=== PATIENT | female | born 1985 | race Caucasian/White ===

== ENCOUNTER 2016-11-24 19:23 | Emergency (ER) | payer OTHER ==
[~2016-11-24] VITALS: Ht 175.3 cm; Wt 88.5 kg
[~2016-11-24 19:23] MED LIST: BACTRIM DS 8001 TAB PO; BACTRIM DS TAB1 EACH PO; CLINDAMYCIN150 MG PO; FLUCONAZOLE150 MG PO; KEFLEX500 MG PO; METFORMIN HCL500 MG PO; METFORMIN500 MG PO; MOTRIN800 MG PO; PYRIDIUM100 M1 PO
--- NOTE | 2016-11-24 19:42 | ED GI/GU/ABDOMINAL COMPLAINT ---
History of Present Illness General Chief Complaint: Abdominal Pain/Flank Pain Stated Complaint: UPPER ABD PAIN, NAUSEA Source: patient Exam Limitations: no limitations Vital Signs & Intake/Output Vital Signs & Intake/Output ED Intake and Output 11/25 0000 11/24 1200 Intake Total Output Total Balance Patient 195 lb Weight Allergies Coded Allergies: NO KNOWN ALLERGIES (02/09/16) Reconcile Medications Metformin HCl 500 MG TABLET 1 TAB PO BID DM Norelgestromin/Ethin.estradiol (Xulane Patch) 150 MCG-35 MCG/24 HOUR PATCH.TDWK 1 PATCH TOP QFRI CONTROL (Reported) Ondansetron (Zofran Odt) 4 MG TAB.RAPDIS 1 TAB PO Q6 PRN NAUSEA Pantoprazole Sodium (Protonix) 40 MG TABLET.DR 1 TAB PO DAILY GERD Triage Note: PT TO TRIAGE WITH C/O ABDOMIINAL PAIN 7/10 INTERMITTENT x1,5 WEEK, +NAUSEA, -VOMITING, LBM TODAY WNL, -DIARRHEA, LOSS OF APPETITE. VSS. Triage Nurses Notes Reviewed? yes ? N Is pt currently ? No Onset: Abrupt Duration: week(s): (2) Timing: recent history Quality/Severity: mild, moderate Location: epigastric Activities at Onset: none Associated Symptoms: NAUSEA HPI: 30 year old female presents with 2 week history of epigastric abdominal pain and nausea. She reports nausea in the morning and at 4 pm. She thought she might be but saw her wire communications engineer last week and tested negative and was treated for a bacterial vaginal infection. She states that the nausea is severe when it comes. No vomiting or diarrhea. Minimal epigastric pain. Deneies any worsening vaginal discharge. Past History Travel History Traveled to [place] past 21 day No Medical History Any Pertinent Medical History? 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 No Review of Systems Review of Systems Constitutional: Denies: chills, fever. EENTM: Reports: no symptoms. Respiratory: Reports: no symptoms. Cardiovascular: Reports: no symptoms. GI: Reports: abdominal pain, nausea. Denies: vomiting. Genitourinary: Denies: discharge, dysuria. Musculoskeletal: Reports: no symptoms. Skin: Reports: no symptoms. Neurological/Psychological: Reports: no symptoms. Hematologic/Endocrine: Denies: bruising, bleeding, polyuria, polydipsia. Immunologic/Allergic: Denies: splenectomy. All Other Systems: Reviewed and Negative Physical Exam Physical Exam General Appearance: well developed/nourished, alert, awake Head: atraumatic, normal appearance Eyes: Bilateral: normal appearance, PERRL, EOMI. Ears, Nose, Throat, Mouth: hearing grossly normal, moist mucous membrane Neck: normal inspection, supple, full range of motion Respiratory: normal breath sounds, chest non-tender, no respiratory distress Cardiovascular: regular rate/rhythm Peripheral Pulses: 2+ radial (R), 2+ radial (L) Gastrointestinal: normal bowel sounds, soft, non-tender Back: normal inspection, normal range of motion Core Measures ACS in differential dx? No Severe Sepsis Present: No Septic Shock Present: No Progress Differential Diagnosis: UTI/pyelo, HYPERGLYCEMIA, DKA, GERD, PUD, Plan of Care: Orders Procedure Date/time Status GLYCOSYLATED HGB 11/24 1954 Active LIPASE 11/24 1950 Complete COMPREHENSIVE METABOLIC PANEL 11/24 1950 Complete CBC WITHOUT DIFFERENTIAL 11/24 1950 Complete URINE 11/24 1941 Complete URINALYSIS 11/24 1941 Complete Laboratory Tests 11/24/16 2004: Hemoglobin A1c Pending 11/24/16 2004: Anion Gap 11, Estimated GFR > 60, BUN/Creatinine Ratio 15.7, Glucose 286 H, Calcium 9.3, Total Bilirubin 0.4, AST 10 L, ALT 27, Alkaline Phosphatase 71, Total Protein 7.0, Albumin 3.9, Globulin 3.1, Albumin/Globulin Ratio 1.3, Lipase 100, CBC w Diff NO MAN DIFF REQ, RBC 4.69, MCV 85.3, MCH 29.2, RDW 12.3, MPV 8.8 , Gran % 64.8, Lymphocytes % 27.6, Monocytes % 4.7, Eosinophils % 2.6, Basophils % 0.3, Absolute Granulocytes 4.8, Absolute Lymphocytes 2.0, Absolute Monocytes 0.3, Absolute Eosinophils 0.2, Absolute Basophils 0, PUBS MCHC 34.3 11/24/161944: Urine Color YEL, Urine Clarity CLEAR, Urine pH 6.0, Ur Specific Foss 1.025, Urine Protein NEG, Urine Ketones TRACE H, Urine Nitrite NEG, Urine Bilirubin NEG, Urine Urobilinogen 0.2, Ur Leukocyte Esterase NEG, Ur Microscopic EXAM NOT REQUIRED, Urine Hemoglobin NEG, Urine Glucose >=1000 H, Urine Test NEGATIVE Initial ED EKG: none Departure Departure Time of Disposition: 2115 Disposition: HOME OR SELF CARE Condition: Stable Clinical Impression Primary Impression: Dyspepsia Secondary Impressions: Diabetes Referrals: PHYLICIA SANDERSON,QUINTIN (PCP/Family) Additional Instructions: GO BACK ON THE METFORMIN AND GLIPIZIDE. ZOFRAN NEEDED FOR NAUSEA. PLEASE MAKE AN APPOINTMENT WITH YOUR DOCTOR AND WITH DR LAMAR IN THE OFFICE. Departure Forms: Customer Survey General Discharge Information Prescriptions: Current Visit Scripts Metformin HCl 1 TAB PO BID #30 TAB Ondansetron (Zofran Odt) 1 TAB PO Q6 PRN NAUSEA #20 TAB Pantoprazole Sodium (Protonix) 1 TAB PO DAILY #14 TAB
[2016-11-24] MEDS ORDERED: XULANE PATCH1 EACH TOP (20:12)
[2016-11-24 20:18] LABS: ABSOLUTE BASOPHIL COUNT 0 /CUMM (0.0-0.2); ABSOLUTE EOSINOPHIL COUNT 0.2 /CUMM (0.0-0.7); ABSOLUTE GRANULOCYTE CT 4.8 /CUMM (1.4-6.5); ABSOLUTE MONOCYTE COUNT 0.3 /CUMM (0.10-0.60); BASOPHIL % 0.3 % (0.0-2.0); EOSINOPHIL % 2.6 % (0-5); GRANULOCYTE % 64.8 % (42.2-75.2); MEAN CORPUSCULAR HGB 29.2 PG (27.0-31.0); MEAN CORPUSCULAR HGB CONC 34.3 G/DL (33.0-37.0); MEAN CORPUSCULAR VOLUME 85.3 FL (81.0-99.0); MEAN PLATELET VOLUME 8.8 FL (7.4-10.4); PLATELET COUNT 297 /CUMM (130-400); RBC DISTRIBUTION WIDTH 12.3 % (11.5-14.5); RED BLOOD CELL CT 4.69 /CUMM (4.20-5.40); WHITE BLOOD CELL COUNT 7.4 /CUMM (4.8-10.8)
[2016-11-24] MEDS ORDERED: ZOFRAN ODT4 M1 PO (21:18)
[2016-11-24] MEDS ORDERED: METFORMIN HCL500 M3 PO (21:18)
[2016-11-24] MEDS ORDERED: PROTONIX40 M3 PO (21:19)
[2016-11-24 21:32] VITALS: BP 138/69
== END 2016-11-24 21:35 ==
LOC: ERH 19:23
PROVIDERS: Emergency Medicine
DX: R10.13 Epigastric pain (principal); E11.9 Type 2 diabetes mellitus without complications; Z79.84 Long term (current) use of oral hypoglycemic drugs
CPT/HCPCS: 81003; 81025

== ENCOUNTER 2016-11-25 17:08 | Emergency (ER) | payer OTHER ==
[~2016-11-25] VITALS: Ht 175.3 cm; Wt 88.5 kg
[~2016-11-25 17:08] MED LIST changes: +METFORMIN HCL500 M3 PO; +PROTONIX40 M3 PO; +XULANE PATCH1 EACH TOP; +ZOFRAN ODT4 M1 PO
--- NOTE | 2016-11-25 17:36 | ED GI/GU/ABDOMINAL COMPLAINT ---
History of Present Illness General Chief Complaint: Nausea, Vomiting, Diarrhea Stated Complaint: VOMITING Source: patient, family, old records Exam Limitations: no limitations Vital Signs & Intake/Output Vital Signs & Intake/Output Vital Signs Date Time Temp Pulse Resp B/P Pulse O2 O2 Flow FiO2 Ox Delivery Rate 11/25 2117 96.3 89 20 156/98 97 11/25 1930 96.9 95 18 166/79 97 11/25 1710 98.6 85 18 166/98 98 Room Air Allergies Coded Allergies: NO KNOWN ALLERGIES (02/09/16) Reconcile Medications Metformin HCl 500 MG TABLET 1 TAB PO BID DM Norelgestromin/Ethin.estradiol (Xulane Patch) 150 MCG-35 MCG/24 HOUR PATCH.TDWK 1 PATCH TOP QFRI CONTROL (Reported) Ondansetron (Zofran Odt) 4 MG TAB.RAPDIS 1 TAB PO Q6 PRN NAUSEA Pantoprazole Sodium (Protonix) 40 MG TABLET.DR 1 TAB PO DAILY GERD Triage Note: PT TO TRIAGE WITH C/O EPIGASTRIC AND LUQ ABD PAIN 8/10, N/V, LOOSE STOOL. PT WAS HERE IN ER LAST NIGHT FOR SAME AND WAS D/C WITH RX PROTONIX AND ZOFRAN. PT AFEBRILE IN TRIAGE. VSS. Triage Nurses Notes Reviewed? yes ? n Is pt currently ? No Onset: Abrupt Duration: day(s): (3), constant Timing: recent history Quality/Severity: aching, moderate, sharpness, severe Severity Numbers: 10 Location: epigastric Radiation: no radiation Activities at Onset: none Prior Abdominal Problems: none Modifying Factors: Worsens With: eating. Associated Symptoms: nausea/vomiting HPI: 30-year-old female with history of diabetes presents emergency room for evaluation complaining of a three-day history of nausea vomiting and severe sharp stabbing 10 out of 10 epigastric abdominal pain that is nonradiating. She denies any chest pain shortness of breath. On arrival the patient is actively dry heaving tearful. She denies any back pain. She was seen in this ER last night for the same was sent home with Zofran Protonix however she states she has been vomiting all day. No sick contacts no recent travel. She denies tobacco alcohol or drug use. No urinary complaints. She is not taken anything for her symptoms today. Her only abdominal surgery see given for C-sections. (ELSIE LUCERO) Past History Travel History Traveled to [place] past 21 day No Medical History Any Pertinent Medical History? 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 No (ELSIE LUCERO) Review of Systems Review of Systems Constitutional: Reports: see HPI. All Other Systems: Reviewed and Negative Comments Review of systems: See HPI, All other systems negative. Constitutional, no chills no fever, no malaise HEENT: no sore throat no congestion Cardiovascular: No chest pain , no palpitation , Skin,no rashes, no change in skin Respiratory: No dyspnea no cough no sputum no hemoptysis GI:nausea vomiting, no diarrhea : No dysuria No hematuria, Muscle skeletal: No joint pain, no back pain, no neck pain, Neurologic: No numbness no headache Psych: No stress Heme/endocrine: No bruising no bleeding Immunology: No lymphadenopathy (ELSIE LUCERO) Physical Exam Physical Exam General Appearance: well developed/nourished, alert, awake Gastrointestinal: soft Comments: Well-developed well-nourished person in MODERATE acute distress HEENT: Normal EENT exam; PERRL, EOMI, no nystagmus. HEAD is atraumatic. moist mucous membranes. Neck: Supple, , normal range of motion Back: Nontender, no CVA tenderness. Full range of motion Cardiovascular: Regular rate and rhythms no murmurs Respiratory: No respiratory distress. Patient speaking in full complete sentences. Breath sounds clear to auscultation bilaterally: NO W/R/R Abdomen: Soft, epigastric tenderness nondistended, no appreciable organomegaly. Normal bowel sounds. No rebound/guarding, No appreciable enlargement of the abdominal aorta, No ascites. Extremity: No edema, full range of motion of extremities Neuro: Alert oriented x3, motor sensory normal. There were no obvious focal neurologic abnormalities. Skin: No appreciable rash on exposed skin, skin is warm and dry. No jaundice no diaphoresis Psych: Mood and affect is normal, memory and judgment is normal. Core Measures ACS in differential dx? No Severe Sepsis Present: No Septic Shock Present: No (CARLY VINSON,ELSIE) Progress Differential Diagnosis: appendicitis, biliary colic, bowel obstruction, colon cancer, cholecystitis, diverticulitis, ectopic , gastritis, hepatitis, hernia, ischemic bowel, inflamm bowel dis, intrauterine , kidney stone, pancreatitis, PID/cervicitis, peptic ulcer, PUD/GERD, perforated viscous, SBO, GASTROPARESIS HERNIA, dka Plan of Care: Orders Procedure Date/time Status Add-on Test (ER Only) 11/25 1912 Active Add-on Test (ER Only) 11/25 190 Active FingerStick- Glucose 11/25 174 Active TROPONIN LEVEL 11/25 1740 Complete ACETONE 11/25 1740 Complete LIPASE 11/25 1731 Complete LACTIC ACID 11/25 1731 Complete COMPREHENSIVE METABOLIC PANEL 11/25 1731 Complete CBC WITHOUT DIFFERENTIAL 11/25 1731 Complete AMYLASE 11/25 1731 Complete Current Medications Sig/Augustine Start time Last Medication Dose Stop Time Status Admin Hydromorphone HCl 1 MG ONCE ONE 11/25 1800 CAN (Dilaudid) 11/25 1801 Ondansetron HCl 4 MG ONCE ONE 11/25 1745 CAN (Zofran) 11/25 1746 Laboratory Tests 11/25/162030: Lactic Acid Cancelled 11/25/16 1740: Anion Gap 17 H, Estimated GFR > 60, BUN/Creatinine Ratio 23.3, Glucose 250 H, Lactic Acid 1.5, Calcium 9.9, Total Bilirubin 0.7, AST 14, ALT 27, Alkaline Phosphatase 85, Troponin I < 0.01, Total Protein 7.8, Albumin 4.4, Globulin 3.4, Albumin/Globulin Ratio 1.3, Amylase 51, Lipase 177, CBC w Diff NO MAN DIFF REQ, RBC 5.13, MCV 85.1, MCH 29.1, RDW 12.4, MPV 8.5, Gran % 78.9 H, Lymphocytes % 16.8 L, Monocytes % 2.9, Eosinophils % 1.1, Basophils % 0.3, Absolute Granulocytes 7.3 H, Absolute Lymphocytes 1.6, Absolute Monocytes 0.3, Absolute Eosinophils 0.1, Absolute Basophils 0, PUBS MCHC 34.2, Acetone Level NEGATIVE Old records reviewed from patient's previous visit last night, medicated with Ativan 2 mg IV Toradol 30 IV Zofran for Protonix 40 IV. She is actively dry heaving anxious tearful. Case d/w dr camarena Patient's dry heaving, and crying immediately stopped after being medicated with Ativan Repeat evaluation she reports to feeling improved pending CAT scan and labs 11/25/2016 7:05:20 PM case discussed with Dr. Camarena 11/25/2016 9:06:26 PM patient states she wants to go home still feeling nauseous she's had no further episodes of vomiting after being medicated Reglan patient clinically appears well at this time case was discussed with Dr. Crook agrees with plan I discussed with the patient at length all of their results. I had an extensive conversation regarding need for close follow up with their primary care physician this week as well as return precautions. I answered all of their questions, they feel comfortable with the plan and follow-up care the patient was provided with Protonix Zofran last night she is declining any prescriptions at home with for pain she clinically otherwise looks (CARLY VINSON,ELSIE) Diagnostic Imaging: Viewed by Me: CT Scan. Discussed w/RAD: CT Scan. Radiology Impression: PATIENT: DUKE ALARCON PRESENT AGE: 30 PATIENT ACCOUNT NO: [id number] : 84 LOCATION: [facility] ORDERING PHYSICIAN: ELISE VINSON SERVICE DATE: 11/25/16 EXAM TYPE: CAT - CT ABD & PELVIS W IV CONTRAST EXAMINATION: CT ABDOMEN AND PELVIS WITH CONTRAST CLINICAL INFORMATION: Epigastric pain, nausea, vomiting. Had negative test last night. Evaluate for cholecystitis, gastroparesis. COMPARISON: None TECHNIQUE: Multidetector volumetric imaging was performed of the abdomen and pelvis before and after the IV administration of 94 mL of Optiray 320 intravenous contrast. Sagittal and coronal reformatted images were obtained on the technologist's workstation. DLP: 517.79 mGy-cm FINDINGS: LUNG BASES: The visualized lung bases are unremarkable. LIVER, GALLBLADDER, AND BILIARY TREE: The liver is normal in size, shape, and attenuation. No focal hepatic lesion or biliary ductal dilatation is present. The gallbladder is unremarkable with no evidence of radiopaque gallstones, gallbladder wall thickening, or obvious pericholecystic inflammatory changes. PANCREAS: Unremarkable. SPLEEN: Borderline in size. ADRENAL GLANDS: Unremarkable. KIDNEYS AND URETERS: The kidneys are normal in size, shape, and attenuation. No hydronephrosis, hydroureter, or calculi seen. No perinephric stranding. BLADDER: Unremarkable. GASTROINTESTINAL TRACT: The small and large bowel are unremarkable. The appendix is unremarkable. ABDOMINAL WALL: No significant hernia is appreciated. LYMPH NODES: Normal. VASCULAR: Unremarkable. PELVIC VISCERA: Unremarkable. OSSEOUS STRUCTURES: Unremarkable. IMPRESSION: 1. Spleen borderline in size. 2. Otherwise, no acute abnormalities in the abdomen or pelvis. No evidence of cholecystitis or gastric distention. DICTATED BY: TRINO KATE MD DATE/TIME DICTATED:11/25/161828 TIRE TRUCKER:JERICHO DATE/TIME TRANSCRIBED:11/25/161828 CONFIDENTIAL, DO NOT COPY WITHOUT APPROPRIATE AUTHORIZATION. <Electronically signed in Other Vendor System> SIGNED BY: TRINO KATE MD 11/25/16 6938 Initial ED EKG: none (ELSIE LUCERO) Departure Departure Disposition: HOME OR SELF CARE Condition: Stable Clinical Impression Primary Impression: Abdominal pain Secondary Impressions: Nausea & vomiting Referrals: QUINTIN WHATLEY MD (PCP/Family) Additional Instructions: Follow-up with your primary care physician as well as final assembler boat Dr. dixon. [place] diet clear liquids continue taking the medications are prescribed last night. Return with any concerns Departure Forms: Customer Survey General Discharge Information (ELSIE LUCERO) PA/WEATHERCASTER Co-Sign Statement Statement: ED Attending supervision documentation- [] I saw and evaluated the patient. I have also reviewed all the pertinent lab results and diagnostic results. I agree with the findings and the plan of care as documented in the PA's/WEATHERCASTER's documentation. [x] I have reviewed the ED Record and agree with the PA's/WEATHERCASTER's documentation. [] Additions or exceptions (if any) to the PAs/WEATHERCASTER's note and plan are summarized below: [] (AYLIN SANDERSON,MARINE Alcocer)
[2016-11-25 17:53] LABS: ABSOLUTE BASOPHIL COUNT 0 /CUMM (0.0-0.2); ABSOLUTE EOSINOPHIL COUNT 0.1 /CUMM (0.0-0.7); ABSOLUTE GRANULOCYTE CT 7.3 /CUMM (1.4-6.5); ABSOLUTE LYMPH COUNT 1.6 /CUMM (1.2-3.4); ABSOLUTE MONOCYTE COUNT 0.3 /CUMM (0.10-0.60); BASOPHIL % 0.3 % (0.0-2.0); EOSINOPHIL % 1.1 % (0-5); GRANULOCYTE % 78.9 % (42.2-75.2); HEMATOCRIT 43.7 % (37-47); MEAN CORPUSCULAR HGB 29.1 PG (27.0-31.0); MEAN CORPUSCULAR HGB CONC 34.2 G/DL (33.0-37.0); MEAN CORPUSCULAR VOLUME 85.1 FL (81.0-99.0); MEAN PLATELET VOLUME 8.5 FL (7.4-10.4); PLATELET COUNT 319 /CUMM (130-400); RBC DISTRIBUTION WIDTH 12.4 % (11.5-14.5); RED BLOOD CELL CT 5.13 /CUMM (4.20-5.40); WHITE BLOOD CELL COUNT 9.2 /CUMM (4.8-10.8)
--- NOTE | 2016-11-25 18:47 | CT SCAN REPORT ---
EXAMINATION: CT ABDOMEN AND PELVIS WITH CONTRAST CLINICAL INFORMATION: Epigastric pain, nausea, vomiting. Had negative test last night. Evaluate for cholecystitis, gastroparesis. COMPARISON: None TECHNIQUE: Multidetector volumetric imaging was performed of the abdomen and pelvis before and after the IV administration of 94 mL of Optiray 320 intravenous contrast. Sagittal and coronal reformatted images were obtained on the technologist's workstation. DLP: 517.79 mGy-cm FINDINGS: LUNG BASES: The visualized lung bases are unremarkable. LIVER, GALLBLADDER, AND BILIARY TREE: The liver is normal in size, shape, and attenuation. No focal hepatic lesion or biliary ductal dilatation is present. The gallbladder is unremarkable with no evidence of radiopaque gallstones, gallbladder wall thickening, or obvious pericholecystic inflammatory changes. PANCREAS: Unremarkable. SPLEEN: Borderline in size. ADRENAL GLANDS: Unremarkable. KIDNEYS AND URETERS: The kidneys are normal in size, shape, and attenuation. No hydronephrosis, hydroureter, or calculi seen. No perinephric stranding. BLADDER: Unremarkable. GASTROINTESTINAL TRACT: The small and large bowel are unremarkable. The appendix is unremarkable. ABDOMINAL WALL: No significant hernia is appreciated. LYMPH NODES: Normal. VASCULAR: Unremarkable. PELVIC VISCERA: Unremarkable. OSSEOUS STRUCTURES: Unremarkable. IMPRESSION: 1. Spleen borderline in size. 2. Otherwise, no acute abnormalities in the abdomen or pelvis. No evidence of cholecystitis or gastric distention.
[2016-11-25 21:18] VITALS: BP 156/98
== END 2016-11-25 21:20 ==
LOC: ERH 17:08
PROVIDERS: Physician Assistant Medical
DX: R11.2 Nausea with vomiting, unspecified (principal); R10.13 Epigastric pain
CPT/HCPCS: 74177; 96361; 96374; 96375; 96376; J1885; J2550; J2765

== ENCOUNTER 2017-09-15 12:06 | Emergency (ER) | payer OTHER ==
[~2017-09-15] VITALS: Ht 175.3 cm; Wt 68.0 kg
--- NOTE | 2017-09-15 13:06 | ED GI/GU/ABDOMINAL COMPLAINT ---
History of Present Illness General Chief Complaint: Abdominal Pain/Flank Pain Stated Complaint: ABD PAIN Source: patient, old records Exam Limitations: no limitations Vital Signs & Intake/Output Vital Signs & Intake/Output Vital Signs Date Time Temp Pulse Resp B/P B/P Pulse O2 O2 Flow FiO2 Mean Ox Delivery Rate 09/15 1803 98.7 92 18 109/69 100 09/15 1414 98.0 80 20 116/75 99 Room Air 09/15 1211 97.2 120 20 135/87 99 Room Air ED Intake and Output 09/16 0000 09/15 1200 Intake Total 1000 Output Total Balance 1000 Intake, IV 1000 Patient 150 lb Weight Weight Reported by Patient Measurement Method Allergies Coded Allergies: NO KNOWN ALLERGIES (02/09/16) Reconcile Medications Cyclobenzaprine HCl 5 MG TABLET 1-2 TAB PO Q8H PRN MUSCLE SPASMS (Reported) Fentanyl 25 MCG/HOUR PATCH.TD72 1 PAT TOP Q3D PAIN (Reported) Gabapentin 300 MG CAPSULE 1 CAP PO TID NEVRE PAIN (Reported) Insulin Lispro (Humalog) 100 UNIT/ML VIAL DM (Reported) Lorazepam 2 MG/ML ORAL.CONC 0.5 ML PO PRN ANXIETY (Reported) Metoclopramide HCl (Reglan) 10 MG TABLET 1 TAB PO 4 TIMES/DAY N/V (Reported) 30 minutes before meals and bedtime Mirtazapine 7.5 MG TABLET 1 TAB PO QPM SLEEP (Reported) Ondansetron (Zofran Odt) 4 MG TAB.RAPDIS 1 TAB SL TID PRN nausea Pantoprazole Sodium (Protonix) 40 MG TABLET.DR 1 TAB PO DAILY GERD Sucralfate (Carafate) 1 GRAM/10 ML ORAL.SUSP 10 ML PO 4 TIMES/DAY GI ( Reported) 1 hour before food and bedtime Triage Note: PT TO ED C/O ABD PAIN SINCE . STATES SHE HAD STOMACH CANCER WITH MULTIPLE SURGERIES IN AND HAS ON AND OFF ABD PAIN WITH VOMITING AND DIARRHEA. H/O NIDDM. Triage Nurses Notes Reviewed? yes ? N Is pt currently ? No Onset: Gradual Duration: week(s): Timing: recent history Quality/Severity: severe Location: generalized abdomen Radiation: back Prior Abdominal Problems: similar symptoms HPI: 31yo female with hx of gastric cancer s/p surgical removal presents to ED complaining of generalized abdominal pain, back pain, nausea, vomiting, diarrhea. Patient states that she takes Dilaudid at home however she was unable to keep her medication down and her pain is been worsening since then. Patient' s pain is described as the same as previous abdominal pain she has had for several months. Patient reports that with her abdominal pain she typically has back pain, vomiting, and diarrhea as well. LBM today prior to arrival. Patient was recently admitted at [facility], states at that time she had neutropenia. Patient recently discharged within the past few days. The patient denies fevers, chills, chest pain, dyspnea, skin rash. (Mecca Olivia) Past History Travel History Traveled to [facility] past 21 day No Medical History Any Pertinent Medical History? 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 No (Mecca Olivia) Review of Systems Review of Systems Constitutional: Reports: no symptoms. EENTM: Reports: no symptoms. Respiratory: Reports: no symptoms. Cardiovascular: Reports: no symptoms. GI: Reports: see HPI. Genitourinary: Reports: no symptoms. Musculoskeletal: Reports: see HPI. Skin: Reports: no symptoms. Neurological/Psychological: Reports: no symptoms. Hematologic/Endocrine: Reports: see HPI. Immunologic/Allergic: Reports: no symptoms. All Other Systems: Reviewed and Negative (Mecca Olivia) Physical Exam Physical Exam General Appearance: well developed/nourished, alert, awake, mild distress Head: atraumatic, normal appearance Eyes: Bilateral: normal appearance. Ears, Nose, Throat, Mouth: hearing grossly normal Neck: normal inspection, supple, full range of motion Respiratory: normal breath sounds, no respiratory distress, lungs clear Cardiovascular: regular rate/rhythm Gastrointestinal: normal bowel sounds, soft, no organomegaly, epigastric, LLQ tenderness without gaurding or rebound tenderness Back: bilateral lower back tenderness, no CVA tenderness Extremities: normal range of motion Neurologic/Psych: awake, alert, oriented x 3 Skin: intact, normal color, warm/dry Core Measures ACS in differential dx? No Sepsis Present: No Sepsis Focused Exam Completed? No (Toma VINSON,Mecca Duque) Progress Differential Diagnosis: appendicitis, bowel obstruction, cholecystitis, diverticulitis, gastritis, inflamm bowel dis, kidney stone, ovarian cyst, ovarian torsion, pancreatitis, peptic ulcer, PUD/GERD, perforated viscous, SBO, UTI/pyelo Plan of Care: Orders Procedure Date/time Status HUMAN BETA HCG SCREEN 09/15 1325 Complete LIPASE 09/15 1314 Complete LACTIC ACID 09/15 1314 Complete COMPREHENSIVE METABOLIC PANEL 09/15 1314 Complete CBC WITHOUT DIFFERENTIAL 09/15 1313 Complete AMYLASE 09/15 131 Complete Laboratory Tests 09/15/17 1614: Lactic Acid Cancelled 09/15/17 1325: Anion Gap 13, Estimated GFR > 60, BUN/Creatinine Ratio 7.5, Glucose 208 H, Lactic Acid 2.4 H, Calcium 8.9, Total Bilirubin < 0.1 L, AST 17, ALT 26, Alkaline Phosphatase 61, Total Protein 5.8 L, Albumin 3.3 L, Globulin 2.5, Albumin/Globulin Ratio 1.3, Amylase 33, Lipase 76, Total Beta HCG NEGATIVE, CBC w Diff NO MAN DIFF REQ, RBC 3.89 L, MCV 83.2, MCH 27.5, MCHC 33.0, RDW 13.9, MPV 7.4, Gran % 73.7, Lymphocytes % 15.1 L, Monocytes % 9.5 H, Eosinophils % 1.4, Basophils % 0.3, Absolute Granulocytes 2.4, Absolute Lymphocytes 0.5 L, Absolute Monocytes 0.3, Absolute Eosinophils 0, Absolute Basophils 0 09/15/17 1314: Urine Color Cancelled, Urine Clarity Cancelled, Urine pH Cancelled, Ur Specific [place] Cancelled, Urine Protein Cancelled, Urine Ketones Cancelled, Urine Nitrite Cancelled, Urine Bilirubin Cancelled, Urine Urobilinogen Cancelled, Ur Leukocyte Esterase Cancelled, Ur Microscopic Cancelled, Urine Hemoglobin Cancelled, Urine Glucose Cancelled Blood work shows mild leukopenia 3.3. Patient reports that while she is appears prehospital her WBC was 1.0. Patient also with elevated lactic acid, this is likely related to her acute vomiting. Patient medicated with IV fluids and IV Dilaudid. Patient longer vomiting here in the emergency department. Reports that her pain has been well controlled with IV Dilaudid. Patient states she wishes to go home at this time following IV medications. Patient feels comfortable, no acute distress. Given chronicity of pain without acute change in quality or location of her pain and no imaging was obtained. Patient was given strict return precautions for any worsening symptoms or other concerns. Patient agrees with plan for observation at this time, she'll follow up with her specialist. She will return to the emergency Department with any worsening symptoms other concerns. The patient was discussed with Dr. Lucas who agrees with this plan. Patient's abdomen is not distended, she has had recent bowel movements, he is not actively vomiting, low suspicion for small bowel obstruction at this time. No McBurney's point tenderness to indicate appendicitis at this time. Initial ED EKG: none (Toma VINSON,Mecca Duque) Departure Departure Disposition: HOME OR SELF CARE Condition: Stable Clinical Impression Primary Impression: Abdominal pain Qualifiers: Abdominal location: generalized Qualified Code: R10.84 - Generalized abdominal pain Secondary Impressions: Nausea & vomiting Qualifiers: Vomiting type: unspecified Vomiting Intractability: non-intractable Qualified Code: R11.2 - Nausea with vomiting, unspecified Referrals: Madeleine Diaz MD (PCP/Family) Additional Instructions: Continue all medications as prescribed by YOUR specialist. You were prescribe Zofran to take as needed for nausea and vomiting. Follow-up with your specialist this week. Return to the emergency Department with any worsening symptoms or other concerns. Please note that there might be incidental findings in your evaluation that are unrelated to the current emergency department visit. Please notify your primary care doctor about this emergency department visit in order to obtain and review all of the testing performed so that these incidental findings can be monitored as needed. If you had an x-ray performed, please understand that some fractures may not be seen on the initial set of x-rays. If your symptoms persist you might need a repeat set of x-rays to check for such a fracture. If you had a laceration evaluated, please understand that foreign bodies such as glass or wood may not be visible to the naked eye or on plain x-rays. If the wound becomes red, swollen, increasingly more painful or if there is any drainage from the wound, please have it reevaluated by a physician for the possibility of a retained foreign body. If you're unable to follow up as outlined in the discharge instructions please return to the emergency department. Thank you for choosing the [facility] Emergency Department for your care. It was a pleasure to serve you today. Departure Forms: Customer Survey General Discharge Information Prescriptions: Current Visit Scripts Ondansetron (Zofran Odt) 1 TAB SL TID PRN nausea #10 TAB (Toma VINSON,Mecca Duque) PA/TEST DESKMAN Co-Sign Statement Statement: ED Attending supervision documentation- I saw and evaluated the patient. I have also reviewed all the pertinent lab results and diagnostic results. I agree with the findings and the plan of care as documented in the PA's/TEST DESKMAN's documentation. x I have reviewed the ED Record and agree with the PA's/TEST DESKMAN's documentation. [] Additions or exceptions (if any) to the PAs/TEST DESKMAN's note and plan are summarized below: [] (Shayy SANDERSON,Rafal)
[2017-09-15 14:05] LABS: ABSOLUTE BASOPHIL COUNT 0 /CUMM (0.0-0.2); ABSOLUTE EOSINOPHIL COUNT 0 /CUMM (0.0-0.7); ABSOLUTE GRANULOCYTE CT 2.4 /CUMM (1.4-6.5); ABSOLUTE LYMPH COUNT 0.5 /CUMM (1.2-3.4); ABSOLUTE MONOCYTE COUNT 0.3 /CUMM (0.10-0.60); BASOPHIL % 0.3 % (0.0-2.0); EOSINOPHIL % 1.4 % (0-5); GRANULOCYTE % 73.7 % (42.2-75.2); HEMATOCRIT 32.3 % (37-47); MEAN CORPUSCULAR HGB 27.5 PG (27.0-31.0); MEAN CORPUSCULAR VOLUME 83.2 FL (81.0-99.0); MEAN PLATELET VOLUME 7.4 FL (7.4-10.4); PLATELET COUNT 316 /CUMM (130-400); RBC DISTRIBUTION WIDTH 13.9 % (11.5-14.5); RED BLOOD CELL CT 3.89 /CUMM (4.20-5.40); WHITE BLOOD CELL COUNT 3.3 /CUMM (4.8-10.8)
[2017-09-15] MEDS ORDERED: CARAFATE1 GM/10 M1 PO (16:29)
[2017-09-15] MEDS ORDERED: MIRTAZAPINE7.5 M1 PO (16:29)
[2017-09-15] MEDS ORDERED: FENTANYL1 EAC2 TOP (16:29)
[2017-09-15] MEDS ORDERED: GABAPENTIN300 M2 PO (16:29)
[2017-09-15] MEDS ORDERED: REGLAN10 M1 PO (16:30)
[2017-09-15] MEDS ORDERED: CYCLOBENZAPRINE5 M2 PO (16:30)
[2017-09-15] MEDS ORDERED: LORAZEPAM2 MG/1 M2 PO (16:31)
[2017-09-15] MEDS ORDERED: HUMALOG100 UNIT/2 SC (16:31)
[2017-09-15] MEDS ORDERED: ZOFRAN ODT4 M1 SL (17:28)
[2017-09-15 18:03] VITALS: BP 109/69
== END 2017-09-15 18:15 ==
LOC: ERH 12:06
PROVIDERS: Physician Assistant
DX: R10.32 Left lower quadrant pain (principal); R11.2 Nausea with vomiting, unspecified
CPT/HCPCS: 81025; 96374; 96375; 96376; J2405

== ENCOUNTER 2017-11-13 11:24 | Emergency (ER) | payer OTHER ==
[~2017-11-13] VITALS: Ht 175.3 cm; Wt 63.5 kg
[~2017-11-13 11:24] MED LIST changes: +CARAFATE1 GM/10 M1 PO; +CYCLOBENZAPRINE5 M2 PO; +FENTANYL1 EAC2 TOP; +GABAPENTIN300 M2 PO; +HUMALOG100 UNIT/2 SC; +LORAZEPAM2 MG/1 M2 PO; +MIRTAZAPINE7.5 M1 PO; +REGLAN10 M1 PO; +ZOFRAN ODT4 M1 SL
[2017-11-13] MEDS ORDERED: RANITIDINE HCL150 MG PO (13:19)
[2017-11-13] MEDS ORDERED: FAMOTIDINE20 M1 PO (13:19)
[2017-11-13] MEDS ORDERED: LANTUS100 UNIT/1 SC (13:20)
--- NOTE | 2017-11-13 13:56 | ED CARDIAC/CP/PALPITATIONS ---
History of Present Illness General Chief Complaint: Chest Pain Stated Complaint: CHEST PAIN Source: patient Exam Limitations: no limitations Vital Signs & Intake/Output Vital Signs & Intake/Output Vital Signs Date Time Temp Pulse Resp B/P B/P Pulse O2 O2 Flow FiO2 Mean Ox Delivery Rate 11/13 1645 97.3 82 18 101/63 100 Room Air 11/13 1533 97.6 80 18 105/59 100 Room Air 11/13 1339 90 22 120/77 98 Room Air 11/13 1159 96.8 108 18 104/75 98 Room Air Room Air Allergies Coded Allergies: NO KNOWN ALLERGIES (02/09/16) Reconcile Medications Famotidine 20 MG TABLET 1 TAB PO BID GI (Reported) Insulin Lispro (Humalog) 100 UNIT/ML VIAL DM (Reported) Insulin-Lantus (Lantus) 100 UNIT/ML VIAL 15 UNITS SC QPM DIABETES (Reported) Pantoprazole Sodium (Protonix) 40 MG TABLET.DR 1 TAB PO DAILY GERD Ranitidine (Ranitidine HCl) 150 MG TABLET 1 TAB PO BID GI (Reported) Sucralfate (Carafate) 1 GRAM/10 ML ORAL.SUSP 10 ML PO 4 TIMES/DAY GI ( Reported) 1 hour before food and bedtime Triage Note: PT TO ED WITH C/O "BAD ACID REFLUX, AND BACK PAIN, I HAD STOMACH CA, HAD 3/4 OF STOMACH AND PART OF ESPOPHOGUS REMOVED, ON MEDS FOR GERD, NOT WORKING". Triage Nurses Notes Reviewed? yes : No Patient currently breastfeeds: No HPI: Patient presents for evaluation of chest pain beginning 3 days ago. Patient's chest pain is a severe burning sensation in the middle of the chest. In addition patient has been suffering severe nausea and vomiting, being unable to tolerate even water. Patient has had multiple episodes of vomiting over the past 3 days, virtually every time she tries to eat. Patient denies any blood in the vomitus. She refers however a 5 pound weight loss over the past week and a 95 pound weight loss over the past year. Patient had a stomach and esophageal cancer surgery in April of last year. Patient's chest pain worsens with eating or drinking and even simply swallowing. She is currently taking a proton pump inhibitor, Pepcid, Zantac, Carafate and Mylanta. Associated symptoms include headache dizziness and generalized weakness. Patient is also experiencing diarrhea since her surgery. (Aaron Harrell MD) Past History Travel History Traveled to [place] past 21 day No Medical History Any Pertinent Medical History? 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 No (Aaron Harrell MD) Review of Systems Review of Systems Constitutional: Reports: no symptoms. EENTM: Reports: no symptoms. Respiratory: Reports: no symptoms. Cardiovascular: Reports: no symptoms. GI: Reports: see HPI. Genitourinary: Reports: no symptoms. Musculoskeletal: Reports: no symptoms. Skin: Reports: no symptoms. Neurological/Psychological: Reports: no symptoms. Hematologic/Endocrine: Reports: no symptoms. Immunologic/Allergic: Reports: no symptoms. All Other Systems: Reviewed and Negative (Aaron Harrell MD) Physical Exam Physical Exam Cardiovascular: see below Comments: Gen.: well-developed, thin, no acute respiratory distress. Moderate distress secondary to chest pain. Head: Normocephalic, atraumatic. Eyes: Normal inspection bilaterally Ears: Normal inspection bilaterally Nose: Normal inspection Throat/mouth : Moist mucosa Neck: Supple, full range of motion, no goiter Heart: Regular rate and rhythm, no murmurs rubs or gallops Lungs: Clear to auscultation bilaterally with normal air entry Chest: Nontender Back: Normal range of motion Abdomen: Soft, nontender, nondistended, decreased bowel sounds Extremities: Normal range of motion grossly, equal radial pulses, no cyanosis clubbing or edema Neurologic: Cranial nerves grossly intact, speech is clear Skin: warm and dry Psychiatric: Calm, cooperative, no apparent delusions or hallucinations, tearful at times Core Measures ACS in differential dx? No Sepsis Present: No Sepsis Focused Exam Completed? No (Aaron Harrell MD) Core Measures CVA/TIA Diagnosis No (Aaron Barrera DO) Progress Differential Diagnosis: POSTOPERATIVE COMPLICATION, ANASTOMOTIC LEAK, HEMORRHAGE , MEDIASTINITIS, PANCREATITIS, PLEURAL EFFUSION, FREE AIR Plan of Care: Orders Procedure Date/time Status Add-on Test (ER Only) 11/13 151 Active Add-on Test (ER Only) 11/13 135 Active HUMAN BETA HCG SCREEN 11/13 135 Complete LIPASE 11/13 135 Complete COMPREHENSIVE METABOLIC PANEL 11/13 135 Complete CBC WITHOUT DIFFERENTIAL 11/13 135 Complete EKG 11/13 1126 Active Laboratory Tests 11/13/17 1355: Anion Gap 13, Estimated GFR > 60, BUN/Creatinine Ratio 20.0, Glucose 159 H, Calcium 10.0, Total Bilirubin 0.7, AST 24, ALT 31, Alkaline Phosphatase 78, Total Protein 7.6, Albumin 4.4, Globulin 3.2, Albumin/Globulin Ratio 1.4, Lipase 88, Total Beta HCG NEGATIVE, CBC w Diff NO MAN DIFF REQ, RBC 4.80, MCV 84.4, MCH 28.7, MCHC 34.0, RDW 14.2, MPV 8.3, Gran % 71.6, Lymphocytes % 18.4 L, Monocytes % 7.0, Eosinophils % 2.1, Basophils % 0.9, Absolute Granulocytes 2.8, Absolute Lymphocytes 0.7 L, Absolute Monocytes 0.3, Absolute Eosinophils 0.1, Absolute Basophils 0 Initial ED EKG: NSR, no ST T wave changes Comments: 11/13/2017 3:23:13 PM patient signed out to Dr. Barrera at shift exchange clerk. (Sharri SANDERSON,Aaron Maya) Departure Departure Condition: Stable Referrals: Joe SANDERSON,Madeleine (PCP/Family) Departure Forms: Customer Survey General Discharge Information (Sharri SANDERSON,Aaron Maya) Departure Disposition: STILL A PATIENT Clinical Impression Primary Impression: Abdominal pain Comments CT scan is unchanged. The patient was instructed to follow up the tanning wheel operator this week. Abdomen was soft and nontender on my exam. She had substantial relief after IV morphine. She will follow the tanning wheel operator as instructed or return to the emergency department if worse. (Aaron Barrera DO) Critical Care Note Critical Care Note Critical Care Time: non-applicable (Aaron Barrera DO)
[2017-11-13 14:10] LABS: ABSOLUTE BASOPHIL COUNT 0 /CUMM (0.0-0.2); ABSOLUTE EOSINOPHIL COUNT 0.1 /CUMM (0.0-0.7); ABSOLUTE GRANULOCYTE CT 2.8 /CUMM (1.4-6.5); ABSOLUTE LYMPH COUNT 0.7 /CUMM (1.2-3.4); ABSOLUTE MONOCYTE COUNT 0.3 /CUMM (0.10-0.60); BASOPHIL % 0.9 % (0.0-2.0); EOSINOPHIL % 2.1 % (0-5); GRANULOCYTE % 71.6 % (42.2-75.2); HEMATOCRIT 40.6 % (37-47); MEAN CORPUSCULAR HGB 28.7 PG (27.0-31.0); MEAN CORPUSCULAR VOLUME 84.4 FL (81.0-99.0); MEAN PLATELET VOLUME 8.3 FL (7.4-10.4); PLATELET COUNT 278 /CUMM (130-400); RBC DISTRIBUTION WIDTH 14.2 % (11.5-14.5)
--- NOTE | 2017-11-13 16:19 | CT SCAN REPORT ---
EXAMINATION: CT CHEST, ABDOMEN AND PELVIS WITH CONTRAST CLINICAL INFORMATION: 31-year-old female with burning chest pain. Status post esophageal/gastric cancer. Presumptive diagnosis: Esophagitis, GE junction leak, pancreatitis, fluid collection.. COMPARISON: CT of the abdomen and pelvis on 11/25/2016. CT of the abdomen and pelvis on 09/30/2017. (The latter exam performed following gastrointestinal surgery at the GE junction). Ultrasound of the spleen on 09/30/2017. (Subcapsular collection involving the spleen). TECHNIQUE: Multidetector volumetric imaging was performed from the thoracic inlet through the pubic symphysis following the administration of: Oral contrast: None Intravenous contrast: 125 mL Omnipaque 350 No contrast reaction reported Sagittal and coronal reformatted images were obtained on the technologist workstation. 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 Clear lungs. 2 surgical clips in the vicinity of the anterior abdominal wall as previously reported. A central venous port catheter directed from the right IJ vein to the distal SVC. CHEST: LUNG: No focal consolidation, nodules or masses. A 4 mm subpleural nodule is located in the minor fissure. Series 5, image 207. PLEURA: No pleural effusion or pneumothorax. MEDIASTINUM: Normal heart size. No pericardial effusion. No hilar or mediastinal lymphadenopathy. Residual thymic tissue seen in the anterior mediastinum. VASCULAR: Normal. CHEST WALL/AXILLA: No axillary or internal mammary lymphadenopathy. ABDOMEN/PELVIS: LIVER, GALLBLADDER, AND BILIARY TREE: The liver is normal in size, shape, and attenuation. No focal hepatic lesion or biliary ductal dilatation is present. The gallbladder is unremarkable with no evidence of radiopaque gallstones, gallbladder wall thickening, or obvious pericholecystic inflammatory changes. PANCREAS: Normal; no mass or surrounding fluid. SPLEEN: Normal size. No focal lesion. Small subcapsular collection measures 5.2 cm in width. ADRENAL GLANDS: Normal; no mass. KIDNEYS AND URETERS: The kidneys are normal in size, shape, and attenuation. No hydronephrosis, hydroureter, or calculi. GASTROINTESTINAL TRACT: The could be a small hiatal hernia. Sutures are seen at the GE junction from the recent surgery. No abnormal fluid cultures are found in the area. Small bowel and colon are unremarkable. Normal appendix. No free fluid. ABDOMINAL WALL: No significant hernia is appreciated. A fibrous tract is seen in the anterior aspect of the left abdomen as a sign of previous fluoroscopic surgery. LYMPHOVASCULAR STRUCTURES: No lymphadenopathy. The aorta is unremarkable. BLADDER: No focal mass or wall thickening seen. No bladder calculi. PELVIC VISCERA: Unremarkable. OSSEOUS STRUCTURES: No acute or suspicious osseous abnormality. IMPRESSION: 1. The subcapsular splenic collection is unchanged. 2. Postoperative alterations of the GE junction with a possible small hiatal hernia but but no evidence of mediastinal fluid collection. 3. No metastatic disease.
[2017-11-13 16:45] VITALS: BP 101/63
== END 2017-11-13 17:49 ==
LOC: ERH 11:24
PROVIDERS: Emergency Medicine
DX: R10.9 Unspecified abdominal pain (principal); R07.9 Chest pain, unspecified
CPT/HCPCS: 74177; 93005; 93010; 96361; 96374; 96375; J2405

== ENCOUNTER 2018-05-06 11:57 | Emergency (ER) | payer OTHER ==
[~2018-05-06] VITALS: Ht 175.3 cm; Wt 72.6 kg
[~2018-05-06 11:57] MED LIST changes: +FAMOTIDINE20 M1 PO; +LANTUS100 UNIT/1 SC; +RANITIDINE HCL150 MG PO
[2018-05-06 12:02] VITALS: BP 124/87
== END 2018-05-06 16:07 | disposition admitted as inpatient to this hospital (09) ==
LOC: ERH 11:57
DX: K21.9 Gastro-esophageal reflux disease without esophagitis (principal)
CPT/HCPCS: 93005; 93010; 99281